=== PATIENT | male | born 1945 | race Hispanic/Latino ===

== ENCOUNTER → 2023-03-10 | Outpatient (CLI) | payer OTHER | END | disposition home or self-care (01) | LOC: RAH 12:58 | PROVIDERS: ATTEND Internal Medicine | DX: G31.9 Degenerative disease of nervous system, unspecified (principal); R41.3 Other amnesia; R41.0 Disorientation, unspecified; G25.0 Essential tremor; R90.82 White matter disease, unspecified | CPT/HCPCS: 70450 ==

== ENCOUNTER 2024-12-28 19:54 | Emergency (ER) | payer OTHER ==
[~2024-12-28] VITALS: Ht 167.6 cm; Wt 86.2 kg
[2024-12-28 20:13] LABS: IMMATURE GRANULOCYTE ABSOLUTE 0.05 K/uL (0-1); NUCLEATED RED BLOOD CELLS 0.0 % (0.0-0.19); PLATELET COUNT (AUTO) 124 K/uL (130-400); RED BLOOD CELL COUNT(AUTO) 3.83 MIL/uL (4.50-6.20); RED CELL DISTRIBUTION WIDTH 12.2 % (11.0-15.5); WHITE BLOOD COUNT (AUTO) 8.5 K/uL (4.8-10.8)
--- NOTE | 2024-12-28 20:16 | ERN ---
ED Note History of Present Illness Stated Complaint: FALL Chief Complaint: Multiple Trauma/Fall Time Seen by MD: 20:03 Dictation: 79-year-old male with a extensive past medical history including hypertension, hyperlipidemia, atrial fibrillation who was on blood thinners presents to emergency room with a ground level fall. Patient states that he was in the yd when he tripped over something in the dark fell on his left side of his chest and in his head. He is currently complaining of left rib pain and posterior neck pain. No fever no cough no shortness a breath. No nausea vomiting diarrhea. No dizziness prior to fall. States that the fall was mechanical Allergies: Coded Allergies: Unable to Assess (Unverified Allergy, Unknown, 12/28/24) Emergency Care VALIDATION MANAGER: None Past Medical History Past Medical History: CAD, CHF, High Cholesterol, Hypertension, Other Additional Past Medical Hx: POOR HISTORIAN Surgical History: Pacer/AICD, Other Surgical History Other: POOR HISTORIAN Review of System Dictation (+) neck pain Initial Vital Sign VS Vital Signs Date Time Temp Pulse Resp B/P (MAP) Pulse Ox O2 Delivery O2 Flow Rate FiO2 12/28/24 19:55 97.3 65 18 99/55 96 Room Air Physical Exam Dictation GENERAL APPEARANCE NAD, activity normal for age, well developed/ well nourished, no cyanosis, pallor, or diaphoresis. EYES lids/conjunctiva normal. EARS/NOSE/THROAT Mucous membranes moist, nares normal, lips/teeth normal uvula midline without oral pharyngeal erythema, exudate or swelling TMs normal bilaterally. No lymphangitis/lymphedema. HEAD/NECK normocephalic atraumatic, no facial trauma. C-collar in place. Muscle spasm noted no midline tenderness RESPIRATORY respiratory effort normal, speaks in full sentences, no tripod position, no accessory muscle use. Lungs clear to auscultation without rhonchi, wheezes, rales CARDIAC Regular rate and rhythm, no edema. ABDOMINAL Soft, ND/NT. No evidence of fluid wave. No pulsatile masses on exam, rebound tenderness, Nolan sign or pain over Mcburney's point. MUSCLES/EXTREMITIES No abnormal range of motion, no swelling. SKIN Warm, pink and dry. No rashes, dermatoses, petechiae or lesions. NEUROLOGICAL Speech is clear and appropriate. Normal level of consciousness. Gait and coordination are normal. 5/5 strength in all extremities. PSYCH Normal mood and affect. Judgement/competence is appropriate Results (Laboratory/Radiology) Laboratory/Radiology Laboratory Tests Test 12/28/24 20:06 White Blood Count 8.5 K/uL (4.8-10.8) Red Blood Count 3.83 MIL/uL (4.50-6.20) L Hemoglobin 12.6 g/dL (14.0-18.0) L Hematocrit 38.7 % (42-54) L Mean Corpuscular Volume 101.0 fL (79-99) H Mean Corpuscular Hemoglobin 32.9 pg (27.0-33.0) Mean Corpuscular Hemoglobin Concent 32.6 g/dL (32.0-36.0) Red Cell Distribution Width 12.2 % (11.0-15.5) Platelet Count 124 K/uL (130-400) L Mean Platelet Volume 11.0 fL (7.5-10.5) H Immature Granulocyte % (Auto) 0.6 % (0-1) Neutrophils (%) (Auto) 69.3 % (40.0-77.0) Lymphocytes (%) (Auto) 20.4 % (21.0-51.0) L Monocytes (%) (Auto) 8.0 % (3.0-13.0) Eosinophils (%) (Auto) 1.3 % (0.0-8.0) Basophils (%) (Auto) 0.4 % (0.0-5.0) Neutrophils # (Auto) 5.9 K/uL (1.8-7.7) Lymphocytes # (Auto) 1.7 K/uL (1.0-4.8) Monocytes # (Auto) 0.7 K/uL (0.1-1.0) Eosinophils # (Auto) 0.11 K/uL (0.00-0.70) Basophils # (Auto) 0.03 K/uL (0.00-0.20) Absolute Immature Granulocyte (auto 0.05 K/uL (0-1) Nucleated Red Blood Cells 0.0 % (0.0-0.19) Sodium Level 141 mmol/L (136-145) Potassium Level 3.7 mmol/L (3.5-5.1) Chloride Level 106 mmol/L (101-111) Carbon Dioxide Level 27 mmol/L (21-32) Blood Urea Nitrogen 31 mg/dL (7-18) H Creatinine 2.6 mg/dL (0.5-1.3) H Glomerular Filtration Rate Calc 24 mL/min (>90) Random Glucose 263 mg/dL (70-105) H Total Calcium 8.4 mg/dL (8.5-10.1) L Total Bilirubin 0.4 mg/dL (0.2-1.0) Direct Bilirubin 0.1 mg/dL (0.0-0.3) Aspartate Amino Transf (AST/SGOT) 22 U/L (10-37) Alanine Aminotransferase (ALT/SGPT) 32 U/L (12-78) Alkaline Phosphatase 125 U/L (50-136) Troponin I High Sensitivity 22 ng/L (4-75) Total Protein 7.0 g/dL (6.0-8.3) Albumin 3.5 g/dL (3.5-5.0) ED Course ED Course Orders Procedure Category Date Status Time Chest 1vw RAD 12/28/24 Resulted 20:03 Ct Head/Brain W/O CT 12/28/24 Resulted Contrast 20:03 Ct Cervical Spine W/O CT 12/28/24 Resulted Contrast 20:03 Cbc With Differential LAB 12/28/24 Complete 20:03 Basic Metabolic Panel LAB 12/28/24 Complete 20:03 Troponin I High LAB 12/28/24 Complete Sensitivity 20:03 Hepatic Function Panel LAB 12/28/24 Complete 20:03 Acetaminophen 500mg PHA 12/28/24 Complete Tab (Tylenol 500mg T 20:30 Ct Chest/Abd/Pelv W/O CT 12/28/24 Resulted Contrast 20:17 Methocarbamol PHA 12/28/24 Transmitted (Methocarbamol) 22:00 Current Medications Medications (Trade) Dose Ordered Sig/Kirk Route PRN Reason Start Time Stop Time Status Last Admin Dose Admin Acetaminophen (TYLenol 500MG TAB) 500 mg ONCE ONCE PO 12/28/24 20:30 12/28/24 20:31 DC 12/28/24 21:13 Vital Signs Date Time Temp Pulse Resp B/P (MAP) Pulse Ox O2 Delivery O2 Flow Rate FiO2 12/28/24 19:55 97.3 65 18 99/55 96 Room Air Medical Decision Making MDM 79-year-old male history of AFib on blood thinners here for evaluation of a fall. CT head CT neck negative. CT abdomen and pelvis pending at this time I however on my read is likely negative. We will give patient some medications for the muscle spasm in his neck. Advised on concerning signs and symptoms for which to return to the emergency room. Labs show creatinine that is elevated however he is ESRD in his follow up by Nephrology. DX & DISP Disposition: Discharge Departure Impression: Primary Impression: Fall (on)(from) sidewalk curb, initial encounter Additional Impression: Neck muscle spasm Condition: Stable Scripts Methocarbamol (Methocarbamol) 500 Mg Tablet 1 TAB PO TID for pain for 7 Days, #21 TAB 0 Refills Prov: LUIS ANTONIO SEALS MD 12/28/24 Referrals: KRISTA HAMMONDS MD (PCP) LUIS ANTONIO SEALS MD Dec 28, 2024 20:15
[2024-12-28 20:22] LABS: CREATININE 2.6 mg/dL (0.5-1.3); GLOMERULAR FILTR. RATE CALC 24.0 mL/min (>90); GLUCOSE,RANDOM 263.0 mg/dL (70-105); SODIUM SERUM 141.0 mmol/L (136-145); UREA NITROGEN, BLOOD 31.0 mg/dL (7-18)
[2024-12-28 20:26] LABS: ASPARTATE AMINOTRANSFERASE 22.0 U/L (10-37); TOTAL PROTEIN, SERUM 7.0 g/dL (6.0-8.3)
--- NOTE | 2024-12-28 20:47 | HMCIMG ---
EXAM: CT Head Without IV contrast. CLINICAL HISTORY: fall on blood thinners TECHNIQUE: Axial computed tomography images of the head/brain without intravenous contrast. COMPARISON: None provided. FINDINGS: BRAIN: No evidence of acute hemorrhage. No mass lesion. No CT evidence for acute territorial infarct. No midline shift or extra-axial collections. Age-appropriate changes. VENTRICLES: No hydrocephalus. ORBITS: The orbits are unremarkable. SINUSES AND MASTOIDS: The paranasal sinuses and mastoid air cells are clear. BONES: No fracture. SOFT TISSUES: Unremarkable. IMPRESSION: No acute intracranial abnormality. /[place]
--- NOTE | 2024-12-28 21:02 | HMCIMG ---
EXAM: CR Chest, 1 View. CLINICAL HISTORY: fall L rib pain COMPARISON: None provided. FINDINGS: LUNGS: No active infiltrate PLEURAL SPACES: No pleural effusion or pneumothorax. MEDIASTINUM: Cardiomegaly. Pacemaker evident. BONES: No aggressive appearing osseous lesion seen. IMPRESSION: 1. Cardiomegaly. Pacemaker evident. 2. No active infiltrate /[place]
--- NOTE | 2024-12-28 21:15 | HMCIMG ---
EXAM: CT Cervical Spine Without IV Contrast CLINICAL HISTORY: Fall. On blood thinners. TECHNIQUE: Thin collimated axial CT images of the cervical spine were obtained with sagittal and coronal reformatted images also submitted. CT scan is done according to ALARA (As Low As Reasonably Achievable). CONTRAST: None. COMPARISON: None provided. FINDINGS: No acute fracture. Straightening of the cervical lordosis reflects paraspinal muscle spasm. Mild multilevel spondylosis is evident by small marginal osteophytes. Moderate degenerative disc height reduction at the C6-C7 level. Normal vertebral body and remaining disc heights. Normal bone density. A nodule measuring approximately 1.5 x 1 cm in the right lobe of thyroid. This may be further characterized with dedicated ultrasound imaging on a nonemergent basis. Fluid density noted in the left mastoid air cells, likely reactive effusion versus mastoiditis. Level by level disease is present as follows: C1-C2: Mild osteoarthritis. C2-C3: No disc bulge or herniation. No neural foraminal, lateral recess or spinal canal stenosis. C3-C4: No disc bulge or herniation. No neural foraminal, lateral recess or spinal canal stenosis. C4-C5: No disc bulge or herniation. No neural foraminal, lateral recess or spinal canal stenosis. C5-C6: No disc bulge or herniation. No neural foraminal, lateral recess or spinal canal stenosis. C6-C7: No disc bulge or herniation. No neural foraminal, lateral recess or spinal canal stenosis. C7-T1: No disc bulge or herniation. No neural foraminal, lateral recess or spinal canal stenosis. IMPRESSIONS: No acute fracture. Straightening of the cervical lordosis reflects paraspinal muscle spasm. Mild multilevel spondylosis. Moderate degenerative disc height reduction at the C6-C7 level. /[place]
--- NOTE | 2024-12-28 21:42 | HMCIMG ---
EXAM: CT Chest, abdomen, and pelvis Without IV contrast. CLINICAL HISTORY: Patient presents after trauma. TECHNIQUE: Axial computed tomography images of the chest, abdomen, and pelvis were obtained without intravenous contrast. CONTRAST: None. COMPARISON: X-ray chest of the same date. FINDINGS: CHEST: CARDIOVASCULAR: A cardiac pacemaker is present in the left anterior chest wall with lead tips in the right atrium and right ventricle. Mild cardiomegaly. Median sternotomy wires and postsurgical changes in the mediastinum. Coronary artery calcifications are present. LUNGS: Subsegmental atelectasis with few fibrotic strands in the bilateral lower lobes. Bibasilar dependent atelectasis. No pulmonary mass. PLEURAL SPACES: No pneumothorax or pleural effusion. LYMPH NODES: No mediastinal or hilar lymphadenopathy. ABDOMEN AND PELVIS: LIVER: Unremarkable. GALLBLADDER AND BILE DUCTS: The gallbladder is surgically absent. No biliary ductal dilatation. PANCREAS: Unremarkable. SPLEEN: Unremarkable. ADRENAL GLANDS: 2.2 x 1.5 cm fat-containing right adrenal lesion. The left adrenal is unremarkable. KIDNEYS, URETERS, AND BLADDER: 2 cm cyst at the lower pole of the left kidney. Bilateral minimal nonspecific perinephric fat stranding. The urinary bladder is well distended with no abnormal wall thickening. There is a diverticulum arising from the anterosuperior wall of the urinary bladder with a tiny wall calcification. No hydronephrosis or nephrolithiasis. STOMACH AND BOWEL: Mild constipation. No evidence of bowel obstruction, enteritis, or colitis. APPENDIX: No CT features of acute appendicitis. PERITONEUM: No free fluid or free air. LYMPH NODES: No intra-abdominal or pelvic lymphadenopathy. VASCULATURE: No evidence of abdominal aortic aneurysm. Mild atherosclerotic calcification in the abdominal aorta. REPRODUCTIVE: Mild prostatomegaly. BONES: Multilevel moderate degenerative changes in the spine. No acute fracture. Diffuse osteopenia. IMPRESSION: No acute traumatic intrathoracic, intra-abdominal, or intrapelvic abnormality. Mild cardiomegaly with coronary artery calcifications and postsurgical mediastinal changes, including cardiac pacemaker and median sternotomy wires. Subsegmental and dependent bibasilar atelectasis in the lower lobes. Right adrenal myelolipoma. Left renal cyst. Bilateral minimal nonspecific perinephric fat stranding. Mild prostatomegaly. /[place]
[2024-12-28] MEDS ORDERED: METH-811 PO (21:51)
[2024-12-28 22:07] VITALS: BP 99/47; PULSE 61; RESP 15; TEMP 98.8; O2SAT 96
== END 2024-12-28 22:07 | disposition home or self-care (01) ==
LOC: EDH 19:54
DX: M62.838 Other muscle spasm (principal); M54.2 Cervicalgia; R07.89 Other chest pain; R51.9 Headache, unspecified; R07.81 Pleurodynia; E78.00 Pure hypercholesterolemia, unspecified; I25.10 Atherosclerotic heart disease of native coronary artery without angina pectoris; I11.0 Hypertensive heart disease with heart failure; Z79.01 Long term (current) use of anticoagulants; Z95.810 Presence of automatic (implantable) cardiac defibrillator; W17.89XA Other fall from one level to another, initial encounter; Y93.89 Activity, other specified; Y92.89 Other specified places as the place of occurrence of the external cause; Y99.8 Other external cause status
CPT/HCPCS: 36415; 70450; 71045; 71250; 72125; 74176; 80048; 80076; 84484; 85025; 99284